=== PATIENT | female | born 1975 | race Caucasian/White ===

== ENCOUNTER → 2016-07-05 | Outpatient (CLI) | payer MEDICAID ==
[~2016-07-05] MED LIST: GADOBUTROL 10 ML VIAL IVP ONE
--- NOTE | 2016-07-05 12:34 | MR ---
MRCP and Upper Abdomen Evaluation (Without and With Contrast) History: Vomiting, nausea, right upper quadrant pain, prior cholecystectomy. Comparison: None available. Technique: Axial in and out of phase images. Coronal FSE T2 BH with fat suppression through the abdom en. 3D thin coronal BH long T2-weighted images, from which a 3D model is constructed and reviewed. Th ick, long T2 slab images acquired through the biliary tree in a radial acquisition. Axial T1 fat-supp ressed LAVA images both before and after 4 phases of contrast administration. Coronal delayed postcon trast LAVA images. 2D FSE long T2 BH images reconstructed into a rotational model. Contrast: 8 mL of Gadavist. Findings: There is focal fatty infiltration in the liver adjacent to the falciform ligament. There is no biliary dilatation. The gallbladder is surgically absent. The spleen, pancreas, adrenals, and kid neys are normal. The visible bowel is normal caliber. A small hiatal hernia is present. The aorta is normal caliber. The IVC, hepatic, portal, splenic, and superior mesenteric veins are pat ent. No pathologically enlarged lymph nodes are identified. Osseous marrow signal intensity is normal . MRCP: The intra and extrahepatic bile ducts of normal caliber and contour. The common bile duct measu res 5 mm. No filling defects are identified. Impression: 1. No visible etiology for the patient's symptoms. 2. Small hiatal hernia. Findings discussed with Dr. Jenny Hartmann today at 1152 hours.
== END ==
LOC: FIMAGING 09:42
PROVIDERS: ATTEND Physician Assistant
DX: R10.11 Right upper quadrant pain (principal); K44.9 Diaphragmatic hernia without obstruction or gangrene
CPT/HCPCS: A9585

== ENCOUNTER 2016-09-09 09:54 | Day surgery (SDC) | payer MEDICAID ==
[2016-09-09] MEDS ORDERED: LIDOCAINE 1% 5 ML SDV ID PRN (10:54)
[2016-09-09] MEDS ORDERED: LR 1,000 ML IV ONE (10:54)
[2016-09-09] MEDS ORDERED: PROPOFOL/EMULSION 500 MG/50 ML BOTTLE IV ONE ×2 (11:31→11:55)
[2016-09-09] MEDS ORDERED: LIDOCAINE 2% 5 ML SDV ONE (11:31)
[2016-09-09] MEDS ORDERED: MIDAZOLAM 2 MG/2 ML VIAL ONE (11:35)
--- NOTE | 2016-09-09 12:47 | GPN ---
[f rep st] PROCEDURE NOTE DATE OF PROCEDURE: 09/09/2016 PROCEDURE: Esophagogastroduodenoscopy with biopsy, endoscopic ultrasound. INDICATION: Stephanie is a 41-year-old female with a history of sphincter of Oddi dysfunction who presents for evaluation of mid epigastric/right upper quadrant pain, iron deficiency anemia and bloating. Her abdominal pain does radiate to her back. She had a recent CT scan which revealed minimal dilation of her common bile duct. She presents for further evaluation. CONSENT: Risks, benefits, and alternatives of the procedure were discussed in great detail with the patient. Risks of infection, bleeding, perforation, sedation, and pancreatitis were discussed. All questions were answered. Informed consent was obtained. MEDICATIONS: Propofol. Please see anesthesiology details. ESTIMATED BLOOD LOSS: Insignificant. ESOPHAGOGASTRODUODENOSCOPY EXAMINATION: The Olympus upper endoscope was introduced into the mouth and advanced into the esophagus. The proximal, mid, and distal esophagus was normal in appearance. The stomach was entered and closely examined, including retroflexed views of angularis, cardia, and fundus. She was noted to have a small hiatal hernia. The mucosa in the antrum and body of the stomach was erythematous in a patchy distribution, and biopsies were taken. The duodenal bulb and second portion of duodenum were normal in appearance. Biopsies were taken for sprue. ENDOSCOPIC ULTRASOUND EXAMINATION: The linear echoendoscope was inserted into the mouth and advanced to the second portion of the duodenum. The pancreas was carefully examined from the uncinate process to the tail, where the spleen was seen. The pancreatic parenchyma had hyperechoic foci and dilated side branches. No cystic lesions or lobulations noted. The pancreatic duct wall was not hyperechoic. No cysts or lobulation noted. The bile duct was seen and measured approximately 5 mm. No stone, stenosis, or stricture was noted. No suspicious periportal, peripancreatic, or celiac nodes were appreciated. No obvious liver lesions were seen. IMPRESSION: 1. No obvious cause of her pain. 2. Biopsies for celiac sprue but no endoscopic stigmata of celiac disease seen.. 3. Gastritis, status post biopsy. RECOMMENDATIONS: 1. Follow up on biopsy results. 2. Proceed with colonoscopy. /[id number]/MODL MTDD
--- NOTE | 2016-09-09 13:17 | GPN ---
[f rep st] PROCEDURE NOTE DATE OF PROCEDURE: 09/09/2016 PROCEDURE: Colonoscopy. INDICATION: The patient is a 41-year-old female who presents for evaluation of iron deficiency anemia. CONSENT: Risks, benefits, and alternatives of the procedure were discussed in great detail with the patient. Risks of infection, bleeding, perforation, and sedation were discussed. All questions answered. Informed consent was obtained. MEDICATIONS: Propofol. Please see anesthesiology record for details. ESTIMATED BLOOD LOSS: None. COLONOSCOPY EVALUATION: A rectal exam was performed and no palpable mass was appreciated. The Olympus colonoscope was introduced into the rectum and advanced to cecum, where the ileocecal valve and appendiceal orifice were seen. The terminal ileum was intubated and was normal in appearance. The quality of the prep was good. No colonic mass or lesions were noted. IMPRESSION: Normal colonoscopy. RECOMMENDATIONS: 1. Repeat colonoscopy in 10 years. 2. Follow up in the office in 6 weeks. /[id number]/MODL MTDD
== END 2016-09-09 13:50 | disposition home or self-care (01) ==
LOC: FSGY 09:54
PROVIDERS: ATTEND Internal Medicine Gastroenterology
PROC: 0DB68ZX Excision of Stomach, Via Natural or Artificial Opening Endoscopic, Diagnostic (ICD-10-PCS; principal; 2016-09-09 11:30)
PROC: 0DB98ZX Excision of Duodenum, Via Natural or Artificial Opening Endoscopic, Diagnostic (ICD-10-PCS; principal; 2016-09-09 11:30)
PROC: 0DJD8ZZ Inspection of Lower Intestinal Tract, Via Natural or Artificial Opening Endoscopic (ICD-10-PCS; principal; 2016-09-09 11:30)
DX: K29.50 Unspecified chronic gastritis without bleeding (principal); D50.9 Iron deficiency anemia, unspecified; E03.9 Hypothyroidism, unspecified
CPT/HCPCS: J2250; J2704